=== PATIENT | male | born 1975 | race Caucasian/White ===

== ENCOUNTER → 2018-01-12 | Outpatient (CLI) | payer OTHER ==
[~2018-01-12] MED LIST: OMNIPAQUE 350 MG/ML, 100ML BOTTLE ONE
== END | disposition home or self-care (01) ==
LOC: CFH 13:27
PROVIDERS: ATTEND Surgery
DX: R10.32 Left lower quadrant pain (principal)
CPT/HCPCS: 74177; Q9967

== ENCOUNTER → 2018-01-28 | Outpatient (CLI) | payer OTHER ==
[~2018-01-28] MED LIST changes: +None at this Time; -OMNIPAQUE 350 MG/ML, 100ML BOTTLE ONE
== END ==
LOC: STAR 10:23
PROVIDERS: ATTEND Surgery
DX: Z01.818 Encounter for other preprocedural examination (principal)
CPT/HCPCS: 93005

== ENCOUNTER 2018-02-04 09:42 | Day surgery (SDC) | payer OTHER ==
[~2018-02-04] VITALS: Ht 188 cm; Wt 88.4 kg
[2018-02-04] MEDS ORDERED: LACTATED RINGERS 1,000 ML IV SCH (10:09)
[2018-02-04] MEDS ORDERED: LIDOCAINE-MPF 1%, 2ML INFIL ONE (10:30)
[2018-02-04] MEDS ORDERED: SCOPOLAMINE PATCH, 1.5MG PATCH.TD72 TD ONE (10:30)
[2018-02-04] MEDS ORDERED: BUPIVACAINE/PF 0.5% ONE (11:37)
[2018-02-04] MEDS ORDERED: EPINEPHRINE 1 MG/ML, 1ML ONE (11:37)
[2018-02-04] MEDS ORDERED: ALBUTEROL SULFATE 2.5 MG/3 ML NPPB PRN (12:00)
[2018-02-04] MEDS ORDERED: EPHEDRINE 50 MG/ML, 1ML IVPush PRN (12:00)
[2018-02-04] MEDS ORDERED: ONDANSETRON 2MG/ML, 2ML IVPush PRN (12:00)
[2018-02-04] MEDS ORDERED: hydrALAzine 20 MG/ML, 1ML IV PRN (12:00)
[2018-02-04] MEDS ORDERED: HYDROmorphone 1 MG/ML, 1ML IV PRN (12:00)
[2018-02-04] MEDS ORDERED: METOPROLOL 1 MG/ML, 5ML IV PRN (12:00)
[2018-02-04] MEDS ORDERED: FENTANYL PF 100 MCG/2ML IV PRN (12:00)
[2018-02-04] MEDS ORDERED: PROMETHAZINE 25 MG/ML, 1ML IV PRN (12:00)
[2018-02-04] MEDS ORDERED: OXYcodone 5 MG/5 ML ORAL.SOL UDC PO PRN (12:00)
[2018-02-04] MEDS ORDERED: LABETALOL 5MG/ML, 20ML IV PRN (12:00)
[2018-02-04] MEDS ORDERED: MEPERIDINE/PF 25MG/0.5ML IVPush PRN (12:00)
[2018-02-04] MEDS ORDERED: MIDAZOLAM 1 MG/ML, 2ML ONE (12:06)
[2018-02-04] MEDS ORDERED: FENTANYL PF 100 MCG/2ML ONE ×2 (12:06→13:56)
[2018-02-04] MEDS ORDERED: CEFAZOLIN 1,000 MG ONE ×2 (12:21)
[2018-02-04] MEDS ORDERED: ROCURONIUM 10MG/ML,5ML ONE (12:21)
[2018-02-04] MEDS ORDERED: DEXAMETHASONE 4 MG/ML, 1ML ONE (12:21)
[2018-02-04] MEDS ORDERED: PROPOFOL 10 MG/ML, 20ML ONE (12:21)
[2018-02-04] MEDS ORDERED: ONDANSETRON 2MG/ML, 2ML ONE (12:52)
[2018-02-04] MEDS ORDERED: GLYCOPYRROLATE 0.2MG/1ML, 5ML ONE (12:52)
[2018-02-04] MEDS ORDERED: NEOSTIGMINE 1 MG/ML, 10ML ONE (12:52)
[2018-02-04] MEDS ORDERED: KETOROLAC 30 MG/1 ML ONE (12:52)
[2018-02-04] MEDS ORDERED: ACETAMINOPHEN 650 MG/20.3 ML UDC ONE (13:56)
[2018-02-04] MEDS ORDERED: MEPERIDINE/PF 50 MG/ML ONE (13:57)
[2018-02-04] MEDS ORDERED: OXYcodone 5 MG/5 ML ORAL.SOL UDC ONE (13:58)
[2018-02-04] MEDS ORDERED: ACETAMINOPHEN 325 MG TABLET PO PRN (14:30)
== END 2018-02-04 16:55 ==
LOC: OUT 09:42
PROVIDERS: ATTEND Surgery
DX: K40.90 Unilateral inguinal hernia, without obstruction or gangrene, not specified as recurrent (principal); Z72.89 Other problems related to lifestyle; Z87.891 Personal history of nicotine dependence
CPT/HCPCS: 49650; C1781; J0171; J0690; J1100; J1885; J2175; J2250; J2405; J2704; J2710; J3490; J7120; S2900; J3010